=== PATIENT | female | born 1985 | race African-American/Black ===

== ENCOUNTER 2016-04-06 19:45 | Emergency (ER) | payer OTHER ==
[~2016-04-06] VITALS: Ht 152.4 cm; Wt 99.0 kg
[~2016-04-06 19:45] MED LIST: PRENCAP35 PO
[2016-04-06 19:48] VITALS: BP_SYST 181; BP_SYST 81; BP_DIAS 106; PULSE 103; RESP 16; TEMP 98.7; O2SAT 97
[2016-04-06 20:26] VITALS: BP 131/94; PULSE 75; RESP 18; O2SAT 97
[2016-04-06] MEDS ORDERED: METF500T PO (20:28)
[2016-04-06] MEDS ORDERED: SPIR25TA PO (20:28)
[2016-04-06] MEDS ORDERED: CYCL1TAB29 PO (20:36)
[2016-04-06] MEDS ORDERED: DICL50TA3 PO (20:36)
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
[2016-04-06] MEDS ORDERED: CYCLOBENZAPRINE HCL 10 MG TAB PO ONE (20:45)
[2016-04-06] MEDS ORDERED: IBUPROFEN 600 MG TAB PO ONE (20:45)
== END 2016-04-06 20:52 | disposition home or self-care (01) ==
LOC: NEPB 19:45
DX: S16.1XXA Strain of muscle, fascia and tendon at neck level, initial encounter (principal); V43.52XA Car driver injured in collision with other type car in traffic accident, initial encounter; Y93.89 Activity, other specified; Y92.410 Unspecified street and highway as the place of occurrence of the external cause
CPT/HCPCS: 99283